=== PATIENT | female | born 1940 | race Caucasian/White ===

== ENCOUNTER 2021-02-19 18:18 | Observation (INO) | payer MEDICARE, OTHER ==
[~2021-02-19] VITALS: Ht 157.5 cm; Wt 111.8 kg
[~2021-02-19 18:18] MED LIST: NORCO 5-325 TA1 EACH PO; OMNICEF 300 MG300 MG PO
[2021-02-19 19:26] LABS: HEMOGLOBIN 15.5 gm/dl (12.3-15.3); RED BLOOD COUNT 4.79 M/UL (4.00-5.10); WHITE BLOOD COUNT 10.1 K/UL (4.5-11.0)
[2021-02-19 19:50] LABS: BUN/CREATININE RATIO 15 (0-10)
[2021-02-20] MEDS ORDERED: FUROSEMIDE40 MG PO (00:08)
[2021-02-20] MEDS ORDERED: LEVOTHYROXINE50 MCG PO (00:08)
[2021-02-20] MEDS ORDERED: LISINOPRIL40 MG PO (00:09)
[2021-02-20 05:55] LABS: HEMOGLOBIN 14.3 gm/dl (12.3-15.3); RED BLOOD COUNT 4.48 M/UL (4.00-5.10)
[2021-02-20 05:57] LABS: WHITE BLOOD COUNT 6.1 K/UL (4.5-11.0)
[2021-02-20] MEDS ORDERED: ACID REDUCER20 MG PO (10:30)
== END 2021-02-20 12:46 | disposition home or self-care (01) ==
LOC: ER1 18:18 → MED SURG 4 21:58 → CDU 21:58 → MED SURG 4 22:48
PROVIDERS: Physician Assistant; ADMIT Internal Medicine
DX: R07.2 Precordial pain (principal); R29.6 Repeated falls; R79.89 Other specified abnormal findings of blood chemistry; E03.9 Hypothyroidism, unspecified; I10 Essential (primary) hypertension; R53.81 Other malaise; E66.01 Morbid (severe) obesity due to excess calories; Z68.42 Body mass index [BMI] 45.0-49.9, adult; Z88.5 Allergy status to narcotic agent; Z79.899 Other long term (current) drug therapy; Z20.822 Contact with and (suspected) exposure to COVID-19
CPT/HCPCS: ECHO; 36415; 70450; 71045; 80048; 80053; 80061; 81001; 82550; 82553; 83036; 83735; 83874; 83880; 84439; 84443; 84484; 85025; 85379; 85610; 85730; 87086; 93005; 93270; 93306; 96372; 96374; 99285; G0378; J1644; J2405; U0002

== ENCOUNTER → 2021-06-24 | Outpatient (CLI) | payer MEDICARE, OTHER ==
[~2021-06-24] MED LIST changes: +ACID REDUCER20 MG PO; +FUROSEMIDE40 MG PO; +LEVOTHYROXINE50 MCG PO; +LISINOPRIL40 MG PO
[2021-06-24 10:50] LABS: HEMOGLOBIN 15.5 gm/dl (12.3-15.3); RED BLOOD COUNT 4.83 M/UL (4.00-5.10); WHITE BLOOD COUNT 6.3 K/UL (4.5-11.0)
== END ==
LOC: LBRF 10:15
PROVIDERS: Nurse Practitioner
DX: I87.2 Venous insufficiency (chronic) (peripheral) (principal); L97.821 Non-pressure chronic ulcer of other part of left lower leg limited to breakdown of skin; I11.0 Hypertensive heart disease with heart failure; I50.9 Heart failure, unspecified
CPT/HCPCS: 80053; 85025